=== PATIENT | male | born 1960 | race Caucasian/White ===

== ENCOUNTER 2023-06-04 14:49 | Emergency (ER) | payer MEDICARE, OTHER, SELFPAY ==
[2023-06-04 14:50] VITALS: BP 147/90; PULSE 104; RESP 18; TEMP 36.8; O2SAT 92; BMI 34.7
--- NOTE | 2023-06-04 15:02 | EDS_ITS ---
<Statement entered by Ibrahima Jane MD - 06/04/23 18:05> Pt seen & evaluated w/MARINA. I personally interviewed & examined the pt. I was involved in all aspects of pt's orders, interpretation of results & treatment. Dr. Jane: I have personally performed a face to face assessment of the patient and have reviewed the MARINA Note. I performed a substantive portion of the visit including all aspects of the following. My dougherty findings include: History is sitting in raft, trying to get out, twisted body, felt a pop and pain in right hip. Status post right KITA secondary to arthritis by 2 months. Exam is afebrile. Vital signs noted. Positive tenderness to palpation/deformity right hip. Limited range of motion. Palpable dorsalis pedis pulse. Medical Decision Making: Check x-ray. Analgesia. Procedural sedation. Closed reduction. Placed in knee immobilizer and given crutches. Follow-up orthopedic surgery. Discharge. Other additions or changes: [None] HPI <NAVYA Fam - Last Filed: 06/04/23 18:52> History of Present Illness Chief Complaint: Lower Extremity Injury Narrative Narrative: Patient presenting today with pain to his right hip. He was on a raft this afternoon with his and was sitting in the back while rowing, his torso was moving side to side along with his feet and he felt a pop in his right hip and had immediate pain. He is unable to bear any weight onto his right lower extremity. He did have a right total hip replacement 2 months [address] performed [address] Carpenter at [place]. PMH includes diabetes mellitus and hypertension. He denies any other injury. PFSH <NAVYA Fam - Last Filed: 06/04/23 18:52> PFSH Home Medications oxycodone-acetaminophen 5 mg-325 mg tablet (Percocet) 1 tab PO Q6H PRN pain 3 days #12 tabs 06/04/23 [Rx Last Taken Unknown] Allergy/AdvReac Type Severity Reaction Status Date / Time adhesive tape AdvReac Intermediate RASH Verified 06/04/23 15:11 Social History Smoking Status: Never smoker ROS <NAVYA Fam - Last Filed: 06/04/23 18:52> ROS ED Constitutional Constitutional ED: Denies chills or fever(s) Cardiovascular Cardiovascular: Denies chest pain Respiratory/Chest Respiratory/Chest: Denies cough or dyspnea Gastrointestinal Gastrointestinal: Denies abdominal pain, nausea or vomiting Musculoskeletal Musculoskeletal: Reports arthralgias Integumentary Denies Abrasions or rash Neurologic Neurologic: Denies paresthesias or weakness EXAM <NAVYA Fam - Last Filed: 06/04/23 18:52> Physical Exam Const Vital Signs: 06/04/23 14:50 06/04/23 16:01 06/04/23 16:08 Temperature 98.3 F Temperature Source Temporal Pulse Rate 104 H 89 Pulse Rate [1] 91 Pulse Rate [2] 89 Pulse Rate [3] 88 Respiratory Rate 18 22 H Respiratory Rate [1] 18 Respiratory Rate [2] 24 H Respiratory Rate [3] 17 Blood Pressure 147/90 H 141/82 H Blood Pressure [1] 144/77 H Blood Pressure Mean 109 Pulse Ox 92 98 Oxygen Delivery Method Room Air Nasal Cannula Oxygen Delivery Method [1] Nasal Cannula Oxygen Delivery Method [2] Nasal Cannula Oxygen Delivery Method [3] Nasal Cannula Oxygen Flow Rate (L/min) 4 Oxygen Flow Rate (L/min) [1] 4 Oxygen Flow Rate (L/min) [2] 4 Oxygen Flow Rate (L/min) [3] 4 06/04/23 16:24 Temperature Temperature Source Pulse Rate Pulse Rate [1] Pulse Rate [2] Pulse Rate [3] Respiratory Rate Respiratory Rate [1] Respiratory Rate [2] Respiratory Rate [3] Blood Pressure Blood Pressure [1] Blood Pressure Mean Pulse Ox Oxygen Delivery Method Room Air Oxygen Delivery Method [1] Oxygen Delivery Method [2] Oxygen Delivery Method [3] Oxygen Flow Rate (L/min) Oxygen Flow Rate (L/min) [1] Oxygen Flow Rate (L/min) [2] Oxygen Flow Rate (L/min) [3] Positive well nourished, well developed and no apparent distress General Appearance ED: well developed HEENT Reports normocephalic and head/scalp atraumatic Mouth ED: Yes moist mucous membranes normal Eyes PERRL and EOMs intact bilaterally Neck full ROM and supple Chest Wall inspection of chest normal Resp normal respiratory effort and clear to auscultation bilaterally Cardio regular rate and regular rhythm GI soft to palpation, non-tender, non-distended and no masses Back/Spine normal ROM and normal to inspection Extremity Extremity Narrative: Internally rotated and shortened right lower extremity, DP pulse 2+ bilaterally, good capillary refill, sensation intact. Patient is unable to perform range of motion to the right hip due to pain. Neuro oriented x3, CN's II-XII intact bilaterally, moves all extremities, no focal motor deficits and no sensory deficits noted Sensorium / Orientation: awake and alert Psych mental status grossly normal and thought process normal Skin no rashes or lesions noted and no wounds <Ibrahima Jane MD - Last Filed: 06/04/23 22:24> Physical Exam Const Vital Signs: 06/04/23 14:50 06/04/23 16:01 06/04/23 16:08 Temperature 98.3 F Temperature Source Temporal Pulse Rate 104 H 89 Pulse Rate [1] 91 Pulse Rate [2] 89 Pulse Rate [3] 88 Respiratory Rate 18 22 H Respiratory Rate [1] 18 Respiratory Rate [2] 24 H Respiratory Rate [3] 17 Blood Pressure 147/90 H 141/82 H Blood Pressure [1] 144/77 H Blood Pressure Mean 109 Pulse Ox 92 98 Oxygen Delivery Method Room Air Nasal Cannula Oxygen Delivery Method [1] Nasal Cannula Oxygen Delivery Method [2] Nasal Cannula Oxygen Delivery Method [3] Nasal Cannula Oxygen Flow Rate (L/min) 4 Oxygen Flow Rate (L/min) [1] 4 Oxygen Flow Rate (L/min) [2] 4 Oxygen Flow Rate (L/min) [3] 4 06/04/23 16:24 Temperature Temperature Source Pulse Rate Pulse Rate [1] Pulse Rate [2] Pulse Rate [3] Respiratory Rate Respiratory Rate [1] Respiratory Rate [2] Respiratory Rate [3] Blood Pressure Blood Pressure [1] Blood Pressure Mean Pulse Ox Oxygen Delivery Method Room Air Oxygen Delivery Method [1] Oxygen Delivery Method [2] Oxygen Delivery Method [3] Oxygen Flow Rate (L/min) Oxygen Flow Rate (L/min) [1] Oxygen Flow Rate (L/min) [2] Oxygen Flow Rate (L/min) [3] [facility] <NAVYA Fam - Last Filed: 06/04/23 18:52> [facility] Narrative Medical decision making narrative: Patient presenting today with a internally rotated and shortened right lower extremity. He was rafting on his bloat and was moving his torso and lower extremities side to side while rowing, felt a popping sensation in his right hip and had immediate pain. He is unable to move his right hip or bear weight onto his right leg. He did just have a total hip replacement on the right side [address] Carpenter in [place]. X-ray will be obtained to rule out fracture and dislocation. He has been given IV pain medication. Vital signs noted. Patient does have a hip dislocation, procedural sedation was performed, please see procedure note. Patient tolerated procedure well. He reports improvement of his symptoms postreduction. He will be given a prescription for Percocet and is to follow-up with the surgeon who performed his surgery this week. He has been given crutches and a knee immobilizer. He has been given RICE instructions. He will be discharged home in stable condition and is comfortable with plan. Radiography X-Ray: Read by ED Physician and Read by Radiologist Diagnostic Testing: Clinical Impression(s) from Imaging Studies Hip/Pelvis X-Ray 06/04/23 15:15 IMPRESSION: Dislocation of the right hip prosthesis. Electronically Signed: Macario Priest MD at 16:14 EDT , Hip/Pelvis X-Ray 06/04/23 16:15 IMPRESSION: Satisfactory reduction of the dislocated femoral portion of the right hip prosthesis. Electronically Signed: Macario Priest MD at 16:49 EDT , <Ibrahima Jane MD - Last Filed: 06/04/23 22:24> [facility] MDM Narrative Medical decision making narrative: Patient presenting today with a internally rotated and shortened right lower extremity. He was rafting on his bloat and was moving his torso and lower extremities side to side while rowing, felt a popping sensation in his right hip and had immediate pain. He is unable to move his right hip or bear weight onto his right leg. He did just have a total hip replacement on the right side [address] Carpenter in [place]. X-ray will be obtained to rule out fracture and dislocation. He has been given IV pain medication. Vital signs noted. Patient does have a hip dislocation, procedural sedation was performed, please see procedure note. Patient tolerated procedure well. He reports improvement of his symptoms postreduction. He will be given a prescription for Percocet and is to follow-up with the surgeon who performed his surgery this week. He has been given crutches and a knee immobilizer. He has been given RICE instructions. He will be discharged home in stable condition and is comfortable with plan. Radiography Diagnostic Testing: Clinical Impression(s) from Imaging Studies Hip/Pelvis X-Ray 06/04/23 15:15 IMPRESSION: Dislocation of the right hip prosthesis. Electronically Signed: Macario Priest MD at 16:14 EDT , Hip/Pelvis X-Ray 06/04/23 16:15 IMPRESSION: Satisfactory reduction of the dislocated femoral portion of the right hip prosthesis. Electronically Signed: Macario Priest MD at 16:49 EDT , Procedures <Ibrahima Jane MD - Last Filed: 06/04/23 22:24> Procedural Sedation Closed reduction right hip prosthesis: Consent Signed: Yes Any Problems With Anesthesia: No You/Your family experience fever (hyperthermia) w/anesthesia: Unknown Sedation medication: Propofol Dose: 140 Route: IV Total Moderate Sedation Units: 5 Maliampati Score: Class II ASA Classification: I Comment:: Patient tolerated procedure well. Discharge Plan Triage Chief Complaint: Lower Extremity Injury ED Midlevel Provider: Elo Dominguez ED Provider: Ibrahima Jane Dx/Rx/DC Orders Clinical Impression: Hip dislocation, right Instructions: ED Procedural Sedation, (Adult), ED Hip Replace Dislocation Reduc Prescriptions: New oxycodone-acetaminophen [Percocet] 5-325 mg tablet 1 tab PO Q6H PRN (Reason: pain) 3 Days Qty: 12 0RF Primary Care Provider: Care Physician,No Primary Referrals: NOT,DEFINED [Non-Staff] - Activity Restrictions/Additional Instructions: Please call tomorrow to make an appointment with your orthopedic surgeon. Return for any worsening of your symptoms. Disposition Disposition: Home, Self Care Discharge Date/Time: 06/04/23 17:33
[2023-06-04] MEDS: Morphine 4 MG/ML Syringe IV (15:06)
--- NOTE | 2023-06-04 15:15 | RAD_ITS ---
EXAM: XR RIGHT HIP WITH PELVIS WHEN PERFORMED, 4 OR MORE VIEWS CLINICAL INDICATION: R hip pain TECHNIQUE: Four or more views of the right hip with pelvis when performed. COMPARISON: No relevant prior studies available. FINDINGS: BONES/JOINTS: Superior posterior dislocation of the femoral portion of the right hip prosthesis. No acute fracture. SOFT TISSUES: Normal. No soft tissue swelling or gas. RAD/HIP, UNI W/ Pelvis 2-3 Views IMPRESSION: Dislocation of the right hip prosthesis. Electronically Signed: Macario Priest MD at 16:14 EDT ,
[2023-06-04 16:01] VITALS: BP 141/82; PULSE 89; RESP 22; O2SAT 98
[2023-06-04 16:08] VITALS: BP 144/77; PULSE 88; PULSE 89; PULSE 91; RESP 17; RESP 18; RESP 24; O2SAT 92; O2SAT 99
[2023-06-04 16:14] VITALS: BP 145/76; O2SAT 94
--- NOTE | 2023-06-04 16:15 | RAD_ITS ---
EXAM: XR RIGHT HIP WITH PELVIS WHEN PERFORMED, 1 VIEW CLINICAL INDICATION: POST REDUCTION TECHNIQUE: Frontal view of the right hip with pelvis when performed. COMPARISON: XR Hips Pelvis Unilateral or Bi dated 06/04/2023 FINDINGS: BONES/JOINTS: Dislocation of the femoral portion of the prosthesis has been reduced. No fracture identified. SOFT TISSUES: Normal. No soft tissue swelling or gas. RAD/Hip 1 view with Pelvis IMPRESSION: Satisfactory reduction of the dislocated femoral portion of the right hip prosthesis. Electronically Signed: Macario Priest MD at 16:49 EDT ,
[2023-06-04 16:19] VITALS: BP 137/71; O2SAT 98
[2023-06-04 16:24] VITALS: BP 120/86; O2SAT 97
== END 2023-06-04 17:33 | disposition home or self-care (01) ==
PROVIDERS: Emergency Provider Emergency Medicine; Visit Provider Emergency Medicine
DX: S73.004A Unspecified dislocation of right hip, initial encounter (principal); E11.9 Type 2 diabetes mellitus without complications; I10 Essential (primary) hypertension; Z96.641 Presence of right artificial hip joint; X58.XXXA Exposure to other specified factors, initial encounter; Y93.16 Activity, rowing, canoeing, kayaking, rafting and tubing; Y92.89 Other specified places as the place of occurrence of the external cause
CPT/HCPCS: 27257; 73501; 73502; 99285